=== PATIENT | female | born 1965 | race African-American/Black ===

== ENCOUNTER 2017-04-07 23:17 | Emergency (ER) | payer OTHER ==
[2017-04-07] MEDS ORDERED: HYDROMORPHONE HCL INJ/PF 2 MG/ML AMPULE ONE (23:22)
[2017-04-07] MEDS ORDERED: HYDROMORPHONE HCL INJ/PF 2 MG/ML AMPULE IV ONE (23:31)
[2017-04-07] MEDS ORDERED: RINGERS SOLUTION,LACTATED 1,000 ML IV ONE (23:31)
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
[2017-04-07] MEDS ORDERED: HYDROMORPHONE HCL INJ/PF 2 MG/ML AMPULE IV PRN (23:40)
[2017-04-07 23:51] LABS: HEMATOCRIT 41.5 % (36.0-47.0); HEMOGLOBIN 14.2 g/dL (12.0-15.5); HGB HCT DIFFERENCE 1.1; MEAN CORPUSCULAR HEMOGLOBIN 30.2 pg (27.0-33.4); MEAN CORPUSCULAR HGB CONC 34.1 g/dL (32.0-36.0); MEAN CORPUSCULAR VOLUME 89 fl (80-97); RED BLOOD COUNT 4.69 10^6/uL (3.72-5.28); RED CELL DISTRIBUTION WIDTH 14.6 % (11.5-14.0); WHITE BLOOD COUNT 8.2 10^3/uL (4.0-10.5)
[2017-04-08 00:01] LABS: ANION GAP 13 (5-19); BLOOD UREA NITROGEN 16 mg/dL (7-20); CALCIUM 9.2 mg/dL (8.4-10.2); CARBON DIOXIDE 24 mmol/L (22-30); CHLORIDE 109 mmol/L (98-107); GLUCOSE 104 mg/dL (75-110); POTASSIUM 4.2 mmol/L (3.6-5.0); SODIUM 145.6 mmol/L (137-145)
[2017-04-08 00:08] LABS: BASOPHILS % (MANUAL) 0 % (0-2); EOSINOPHILS % (MANUAL) 4 % (0-6); LYMPHOCYTES % (MANUAL) 51 % (13-45); TOTAL CELLS COUNTED 100
[2017-04-08 00:11] LABS: ANISOCYTOSIS SLIGHT; TOXIC GRANULATION SLIGHT; TOXIC VACUOLATION PRESENT
[2017-04-08] MEDS ORDERED: MORPHINE SULFATE IR 15 MG TABLET PO ONE (01:10)
[2017-04-08] MEDS ORDERED: DIPH/PERTUSS(ACELL)/TETANUS VAC/PF 0.5 ML SYR (>=10YO) IM ONE (01:42)
[2017-04-08] MEDS ORDERED: ONDANSETRON HCL INJ/PF 4 MG/2 ML SDV ONE (01:47)
[2017-04-08 01:57] VITALS: BP 138/74
== END 2017-04-08 01:50 | disposition short-term general hospital (02) ==
LOC: ER 23:17
DX: T21.27XA Burn of second degree of female genital region, initial encounter (principal); T24.212A Burn of second degree of left thigh, initial encounter; T24.211A Burn of second degree of right thigh, initial encounter; T21.22XA Burn of second degree of abdominal wall, initial encounter; T31.0 Burns involving less than 10% of body surface; X10.2XXA Contact with fats and cooking oils, initial encounter; Y93.G3 Activity, cooking and baking; Y92.009 Unspecified place in unspecified non-institutional (private) residence as the place of occurrence of the external cause; R00.0 Tachycardia, unspecified
CPT/HCPCS: 96376; 99285; 90471; 96374; 96375; 36415; 85025; 80048; 90715; J1170 ×2; J2405; J7120

== ENCOUNTER 2019-02-09 00:55 | Emergency (ER) | payer OTHER ==
[2019-02-09] MEDS ORDERED: ONDANSETRON HCL INJ/PF 4 MG/2 ML SDV IV ONE (01:33)
[2019-02-09] MEDS ORDERED: KETOROLAC TROMETHAMINE INJ/PF 30 MG/1 ML SDV IV ONE (01:33)
--- NOTE | 2019-02-09 01:34 | ER Document Report ---
ED GI/ - General Chief Complaint: Abdominal Pain Stated Complaint: ABDOMINAL PAIN Time Seen by Provider: 02/09/19 01:26 Primary Care Provider: KENN COUGHLIN [Primary Care Provider] - Follow up in 3-5 days Notes: Patient is a 53-year-old female that comes to the emergency department for chief complaint of lower abdominal pain that started about 2 days ago. Pain does come and go but at times is very sharp and even nauseating. She denies vomiting or fever. She states that she thought she was constipated, she did have a loose bowel movement earlier, nonbloody, denies black stools. Denies flank pain. She has had a total hysterectomy and a panniculectomy. She denies any daily medications. She did take a home stool softener without any noted results. She has had negative colonoscopies in the past. TRAVEL OUTSIDE OF THE [place] IN LAST 30 DAYS: No - Related Data Allergies/Adverse Reactions: IV contrast Dye Allergy (Uncoded 04/07/17 23:44) Past Medical History - General Information source: Patient - Social History Smoking Status: Never Smoker Drug Abuse: None Lives with: Family Family History: Reviewed & Not Pertinent Neurological Medical History: Reports: Hx Migraine Psychiatric Medical History: Reports: Hx Depression Past Surgical History: Reports: Hx Abdominal Surgery, Hx Section, Hx Hysterectomy - Immunizations Hx Diphtheria, Pertussis, Tetanus Vaccination: Yes Review of Systems - Review of Systems Constitutional: No symptoms reported EENT: No symptoms reported Cardiovascular: No symptoms reported Respiratory: No symptoms reported Gastrointestinal: See HPI Genitourinary: No symptoms reported Female Genitourinary: No symptoms reported Musculoskeletal: No symptoms reported Skin: No symptoms reported Hematologic/Lymphatic: No symptoms reported Neurological/Psychological: No symptoms reported Physical Exam - Vital signs Vitals: Temp Pulse Resp BP Pulse Ox 98.8 F 89 20 116/86 H 98 02/09/19 01:06 02/09/19 01:06 02/09/19 01:06 02/09/19 01:06 02/09/19 01:06 - Notes Notes: GENERAL: Alert, interacts well. No acute distress. HEAD: Normocephalic, atraumatic. EYES: Pupils equal, round, and reactive to light. Extraocular movements intact. ENT: Oral mucosa moist, tongue midline. Oropharynx unremarkable. LUNGS: Clear to auscultation bilaterally, no wheezes, rales, or rhonchi. No respiratory distress. HEART: Regular rate and rhythm. No murmur ABDOMEN: There is tenderness in the mid lower abdomen, tenderness extends mainly to the left lower quadrant with some wincing but no severe guarding. Abdomen is still soft. Multiple old abdominal scars noted. No hernia or evidence of incarcerated hernia. Bowel sounds present throughout. GENITOURINARY: Deferred EXTREMITIES: Moves all 4 extremities spontaneously. No edema, normal radial and dorsalis pedis pulses bilaterally. No cyanosis. BACK: no cervical, thoracic, lumbar midline tenderness. No saddle anesthesia, normal distal neurovascular exam. Moves all extremities in full range of motion. NEUROLOGICAL: Alert and oriented x3. Normal speech. Cranial nerves II through XII grossly intact. PSYCH: Normal affect, normal mood. SKIN: Warm, dry, normal turgor. No rashes or lesions noted. Course - Re-evaluation Re-evalutation: Patient is well-appearing, vital signs unremarkable, however she does have noted tenderness in the lower and left lower quadrant on evaluation. CBC, chemistry, urinalysis unremarkable. Discussed with patient. Decision was made to perform imaging. She is allergic to contrast dye, this was done without. CAT scan showing diverticulitis without abscess, perforation, or other concerning findings. This is consistent with patient's presentation. Patient given full details, discussion was made, discussed expectations, follow-up, and return precautions. Starting on antibiotics. Stable at time of discharge. Patient states understanding and agreement. - Vital Signs Vital signs: Temp Pulse Resp BP Pulse Ox 98.4 F 84 16 120/84 98 02/09/19 04:34 02/09/19 04:34 02/09/19 04:34 02/09/19 04:34 02/09/19 01:06 - Laboratory Result Diagrams: 02/09/19 01:42 02/09/19 01:42 Laboratory results interpreted by me: 02/09/19 02/09/19 02/09/19 01:42 01:42 01:42 RDW 14.8 H Est GFR (MDRD) Non-Af 52 L Glucose 119 H Urine Blood SMALL H Discharge - Discharge Clinical Impression: Lower abdominal pain, Diverticulitis Condition: Stable Disposition: HOME, SELF-CARE Additional Instructions: Your evaluation and imaging indicate diverticulitis. Maintain clear fluid diet for the first day. Take antibiotics as prescribed, take pain medication and nausea medication if needed. Follow-up close with primary care provider for additional evaluation and management. Return if you worsen including severe worsening pain, vomiting, fever, or any other concerning or worsening symptoms. Prescriptions: Ciprofloxacin HCl [Cipro 500 mg Tablet] 500 mg PO BID #14 tablet Metronidazole [Flagyl 500 mg Tablet] 500 mg PO TID #21 tablet Hydrocodone/Acetaminophen [[place] 5-325 mg Tablet] 1 - 2 tab PO ASDIR #12 tablet Promethazine HCl [Phenergan 25 mg Tablet] 25 mg PO Q6H PRN #15 tablet PRN Reason: Referrals: [facility] [Primary Care Provider] - Follow up in 3-5 days
[2019-02-09 02:03] LABS: ABSOLUTE EOSINOPHILS # (AUTO) 0.1 10^3/uL (0.0-0.6); ABSOLUTE MONOCYTES (AUTO) 0.7 10^3/uL (0.1-1.4); BASOPHILS % (AUTO) 0.3 % (0-2); EOSINOPHILS % (AUTO) 0.7 % (0-6); HEMATOCRIT 44.4 % (36.0-47.0); HEMOGLOBIN 14.6 g/dL (12.0-15.5); LYMPHOCYTES % (AUTO) 34.1 % (13-45); MEAN CORPUSCULAR HEMOGLOBIN 28.5 pg (27.0-33.4); MEAN CORPUSCULAR HGB CONC 32.9 g/dL (32.0-36.0); MEAN CORPUSCULAR VOLUME 87 fl (80-97); MONOCYTES % (AUTO) 8.4 % (3-13); PLATELET COUNT 157 10^3/uL (150-450); RED BLOOD COUNT 5.13 10^6/uL (3.72-5.28); RED CELL DISTRIBUTION WIDTH 14.8 % (11.5-14.0); SEGMENTED NEUTROPHILS % (AUTO) 56.5 % (42-78); TOTAL CELLS COUNTED % (AUTO) 100 %; WHITE BLOOD COUNT 8.9 10^3/uL (4.0-10.5)
[2019-02-09 02:07] LABS: APPEARANCE,URINE CLEAR; BILIRUBIN,URINE NEGATIVE (NEGATIVE); COLOR,URINE YELLOW; GLUCOSE, URINE NEGATIVE (NEGATIVE); KETONES,URINE NEGATIVE (NEGATIVE); LEUKOCYTE ESTERASE,URINE NEGATIVE (NEGATIVE); NITRITE,URINE NEGATIVE (NEGATIVE); PROTEIN,URINE NEGATIVE (NEGATIVE); URINE SPECIFIC GRAVITY 1.013; UROBILINOGEN,URINE NEGATIVE mg/dL (<2.0)
[2019-02-09 02:27] LABS: ALBUMIN 4.1 g/dL (3.5-5.0); ALKALINE PHOSPHATASE 81 U/L (38-126); ANION GAP 9 (5-19); ASPARTATE AMINO TRANSFERASE 18 U/L (14-36); BILIRUBIN,DIRECT 0.3 mg/dL (0.0-0.4); BILIRUBIN,TOTAL 1.2 mg/dL (0.2-1.3); BLOOD UREA NITROGEN 11 mg/dL (7-20); CALCIUM 9.3 mg/dL (8.4-10.2); CARBON DIOXIDE 23 mmol/L (22-30); CHLORIDE 106 mmol/L (98-107); GLUCOSE 119 mg/dL (75-110); POTASSIUM 4.1 mmol/L (3.6-5.0); TOTAL PROTEIN 6.8 g/dL (6.3-8.2)
--- NOTE | 2019-02-09 03:13 | RADIOLOGY REPORT (SQ) ---
CLINICAL HISTORY: sharp mid and left lower abd pain COMPARISON: None. TECHNIQUE: CT ABDOMEN PELVIS WITHOUT IV CONTRAST on 02/09/2019 1:33 AM CDT This exam was performed according to our departmental dose-optimization program, which includes automated exposure control, adjustment of the mA and/or kV according to patient size and/or use of iterative reconstruction technique. FINDINGS: Lower lungs are clear. Abdomen: Liver is fatty in attenuation. Extensive ventral hernia repair was performed with mesh. There is no biliary dilatation. The pancreas and spleen are normal in appearance. The adrenal glands and kidneys are unremarkable. Abdominal aorta is normal in course and caliber without aneurysm. There is no free air. There is no retroperitoneal adenopathy. Pelvis: There is moderate diverticulosis of the sigmoid colon. There is inflammation adjacent to some of the diverticula in the mid sigmoid colon. Urinary bladder is unremarkable. There is no free fluid. Hysterectomy was performed. Appendix is normal. Skeleton: There are no acute osseous findings. No suspicious bony lesions. IMPRESSION: Mid sigmoid acute diverticulitis.
[2019-02-09] MEDS ORDERED: ONDANSETRON ODT 4 MG TAB (6 TAB/ER DISP) PO PRN (03:55)
[2019-02-09] MEDS ORDERED: HYDROCODONE/ACETAMINOPHEN 5-325 MG (6 TAB/ER DISP) PO PRN (03:55)
[2019-02-09] MEDS ORDERED: METRONIDAZOLE 500 MG TABLET PO ONE (03:55)
[2019-02-09] MEDS ORDERED: CIPROFLOXACIN HCL 500 MG TABLET PO ONE (03:55)
[2019-02-09 04:36] VITALS: BP 120/84
== END 2019-02-09 04:34 | disposition home or self-care (01) ==
LOC: ER 00:55
DX: K57.92 Diverticulitis of intestine, part unspecified, without perforation or abscess without bleeding (principal); R10.30 Lower abdominal pain, unspecified; R11.0 Nausea; Z91.041 Radiographic dye allergy status; Z90.710 Acquired absence of both cervix and uterus
CPT/HCPCS: 99284; 96374; 96375; 36415; 83690; 85025; 80053; 81001; 74176; J1885; J2405